=== PATIENT | female | born 1990 | race African-American/Black ===

== ENCOUNTER 2019-01-14 15:40 | Emergency (ER) | payer MEDICAID ==
[~2019-01-14] VITALS: Ht 165.1 cm; Wt 60.0 kg
[2019-01-14] MEDS ORDERED: ACETAMINOPHEN 325MG TABLET PO STA (17:13)
[2019-01-14 17:38] LABS: BASOPHILS % 0.8 % (0.0-2.0); EOSINOPHILS % 2.8 % (0.0-5.0); HEMATOCRIT. 39.7 % (36.0-48.0); HEMOGLOBIN. 13.4 g/dL (12.0-16.0); LYMPHOCYTES % 16.5 % (20.0-50.0); MEAN CORPUSCULAR HEMOGLOBIN 30.3 pg (28.0-32.0); MEAN PLATELET VOLUME 6.7 fl (7.4-10.4); MONOCYTES % 6.8 % (2.0-8.0); NEUTROPHILS % 73.1 % (40.0-76.0); PLATELET 359 x1000/uL (130-400); RED BLOOD CELL COUNT 4.41 mill/uL (4.2-5.4); RED CELL DISTRIBUTION WIDTH 12.7 % (11.6-14.6)
[2019-01-14 17:43] LABS: CHLORIDE 108 mEq/L (98-107)
[2019-01-14] MEDS ORDERED: KETOROLAC 30MG/ML VIAL IM ONE (19:00)
[2019-01-14 19:15] VITALS: BP 129/77
== END 2019-01-14 19:22 | disposition home or self-care (01) ==
LOC: ER 15:40
DX: R07.1 Chest pain on breathing (principal); R06.02 Shortness of breath; F12.10 Cannabis abuse, uncomplicated; R05 Cough; Z98.890 Other specified postprocedural states
CPT/HCPCS: 36415; 71045; 80053; 83880; 84484; 85025; 85379; 93005; 99284; J1885

== ENCOUNTER 2020-11-25 21:39 | Emergency (ER) | payer MEDICAID ==
[~2020-11-25] VITALS: Ht 160 cm; Wt 73.0 kg
[2020-11-25 22:00] VITALS: BP 117/94
[2020-11-25] MEDS: LORAZEPAM 1MG TABLET PO ONE (22:53)
== END 2020-11-26 00:06 | disposition home or self-care (01) ==
LOC: ER 21:39
DX: F41.0 Panic disorder [episodic paroxysmal anxiety] (principal); F12.10 Cannabis abuse, uncomplicated
CPT/HCPCS: 81025; 82962; 99283

== ENCOUNTER 2023-06-26 20:11 | Emergency (ER) | payer MEDICAID ==
[~2023-06-26] VITALS: Ht 167.6 cm; Wt 75.0 kg
[2023-06-26 20:15] VITALS: O2SAT 99
[2023-06-26] MEDS ORDERED: ONDANSETRON 4MG ODT PO STA (20:37)
[2023-06-26 22:13] LABS: BASOPHILS % 1.3 % (0.0-2.0); EOSINOPHILS % 0.4 % (0.0-5.0); HEMATOCRIT. 38.9 % (36.0-48.0); HEMOGLOBIN. 13.3 g/dL (12.0-16.0); LYMPHOCYTES % 7.3 % (20.0-50.0); MEAN CORPUSCULAR HEMOGLOBIN 32.3 pg (28.0-32.0); MEAN CORPUSCULAR HGB CONC 34.1 g/dL (31.0-37.0); MEAN CORPUSCULAR VOLUME 94.6 fL (81.0-99.0); MONOCYTES % 8.4 % (2.0-8.0); NEUTROPHILS % 82.6 % (40.0-76.0); PLATELET 246 x1000/uL (130-400); RED BLOOD CELL COUNT 4.11 mill/uL (4.2-5.4); RED CELL DISTRIBUTION WIDTH 13.1 % (11.6-14.6); WHITE BLOOD COUNT 6.1 x1000/uL (4.5-11.0)
[2023-06-26 22:21] LABS: CHLORIDE 105 mEq/L (98-107); HCG SCREEN NEGATIVE; POTASSIUM 3.6 mEq/L (3.5-5.1); SODIUM 135 mEq/L (136-145)
[2023-06-26 22:22] LABS: CALCIUM 10.1 mg/dL (8.7-10.4); CARBON DIOXIDE 27 mEq/L (21-32)
[2023-06-26 22:27] LABS: CREATININE 0.6 mg/dL (0.6-1.0); GLUCOSE 91 mg/dL (70-105); UREA NITROGEN BLOOD 7 mg/dL (9-23)
[2023-06-26 22:31] LABS: ETHANOL BLOOD < 10 mg/dL (<10)
[2023-06-26 23:03] LABS: CLARITY URINE CLEAR (CLEAR); COLOR URINE ORANGE (YELLOW); GLUCOSE URINE NEGATIVE (NEGATIVE); KETONES URINE 1+ (NEGATIVE); LEUKOCYTE ESTERASE URINE TRACE (NEGATIVE); NITRITE URINE NEGATIVE (NEGATIVE); OCCULT BLOOD URINE TRACE (NEGATIVE); PROTEIN URINE 3+ (NEGATIVE); SPECIFIC GRAVITY URINE 1.028 (1.005-1.030)
[2023-06-26] MEDS: ONDANSETRON 4MG ODT PO NR (23:04)
[2023-06-26 23:09] LABS: *AMPHETAMINES SCREEN URINE NEGATIVE (NEGATIVE); *BARBITURATES SCREEN URINE NEGATIVE (NEGATIVE); *BENZODIAZEPINES SCREEN URINE NEGATIVE (NEGATIVE); *COCAINE SCREEN URINE NEGATIVE (NEGATIVE); CANNABINOID URINE SCREEN NEGATIVE (NEGATIVE); ECSTASY MDMA SCREEN URINE NEGATIVE (NEGATIVE); METHADONE URINE SCREEN NEGATIVE (NEGATIVE); OPIATES URINE SCREEN NEGATIVE (NEGATIVE); PHENCYCLIDINE URINE SCREEN NEGATIVE (NEGATIVE)
[2023-06-26 23:17] LABS: BACTERIA URINE 1+; FINE GRANULAR CASTS URINE 0-5 /lpf; MUCUS URINE 4+ /lpf (< = 2+); SQUAMOUS EPITHELIAL CELL URINE 1+ /lpf (RARE/1+)
[2023-06-27] MEDS ORDERED: ONDA4TAB50 MT (00:42)
[2023-06-27 01:15] VITALS: BP 150/95; PULSE 95; RESP 18; TEMP 98.3
== END 2023-06-27 01:20 | disposition home or self-care (01) ==
LOC: ER 20:11
DX: R11.2 Nausea with vomiting, unspecified (principal); F12.10 Cannabis abuse, uncomplicated; I10 Essential (primary) hypertension; Z00.00 Encounter for general adult medical examination without abnormal findings
CPT/HCPCS: 80305; 80048; 81003; 80320; 84703; 83690; 85025; 36415; 99283; Q0162; G0480

== ENCOUNTER 2023-09-04 00:18 | Emergency (ER) | payer MEDICAID ==
[~2023-09-04] VITALS: Ht 162.6 cm; Wt 82.0 kg
[~2023-09-04 00:18] MED LIST: ONDA4TAB50 MT
[2023-09-04 00:27] VITALS: O2SAT 100
[2023-09-04] MEDS: ACETAMINOPHEN 325MG TABLET PO ONE (02:15)
[2023-09-04] MEDS ORDERED: GUAIFENESIN/DM 600MG/30MG ER TAB 12HR PO PRN (02:15)
[2023-09-04] MEDS: IBUPROFEN 600MG TABLET PO ONE (04:10)
[2023-09-04] MEDS ORDERED: ACET-2708 MT (04:15)
[2023-09-04] MEDS ORDERED: MED4 MT (04:15)
[2023-09-04 04:35] VITALS: BP 130/89; PULSE 77; RESP 18; TEMP 98.9
== END 2023-09-04 04:37 | disposition home or self-care (01) ==
LOC: ER 00:30
DX: B34.9 Viral infection, unspecified (principal); F12.10 Cannabis abuse, uncomplicated; I10 Essential (primary) hypertension; F41.9 Anxiety disorder, unspecified; Z00.00 Encounter for general adult medical examination without abnormal findings; Z20.822 Contact with and (suspected) exposure to COVID-19
CPT/HCPCS: 71045; 87426; 87430; 99284